=== PATIENT | female | born 1945 | race Caucasian/White ===

== ENCOUNTER 2017-03-25 13:27 | Outpatient (CLI) | payer OTHER ==
--- NOTE | 2017-03-25 15:39 | DIAGNOSTIC IMAGING REPORT ---
PROCEDURE: MR BRAIN WITHOUT CONTRAST INDICATION: HEADACHE X4 MONTHS, STUTTERING, FOGGY TECHNIQUE: Multiplanar multisequence MRI imaging of the brain without contrast. COMPARISON: None. FINDINGS: The midline structures are normally formed. There is mild cerebral cortical atrophy diffusely. This results in slight prominence of the ventricular system. Basal cisterns are patent. Flow voids in the major intracranial vessels are normal. The visible portions of the cranial nerves and their origins appear normal. Signal throughout the moore and white matter demonstrates multiple small rounded areas of increased T2/FLAIR signal in the frontal parietal subcortical white matter, chi radiata white matter, periventricular white matter, and occasionally in the temporal lobes. There is a fairly large patch in the inferior left frontotemporal white matter measuring about 15 mm. None of these areas demonstrate restricted diffusion to suggest acute ischemia. No blooming artifact to suggest hemosiderin deposition. 5 mm rounded focus of cortex signal in the prepontine cistern to the right of midline (series 7 image nine), not well seen on all sequences, and of uncertain origin. No blooming artifact or restricted diffusion. Normal signal in the visible bones. The sinuses are normally aerated. Visible extracranial soft tissues including the orbits are normal. IMPRESSION: 1. No evidence of acute process. 2. Changes of chronic microvascular ischemia, particularly left inferior frontotemporal white matter. 3. Age related involutional changes. 4. 5 mm rounded focus in the right prepontine cistern is most likely an imaging artifact, however a small lesion such as an aneurysm is not excluded. Further evaluation with MRA or CT/CTA of the head is recommended.
== END 2017-03-25 23:00 ==
LOC: MRI SRH 13:27
DX: I67.82 Cerebral ischemia (principal); R93.0 Abnormal findings on diagnostic imaging of skull and head, not elsewhere classified

== ENCOUNTER 2017-03-28 12:23 | Outpatient (CLI) | payer OTHER ==
--- NOTE | 2017-03-28 14:37 | DIAGNOSTIC IMAGING REPORT ---
PROCEDURE: MRA HEAD WITHOUT CONTRAST INDICATION: 5mm ROUNDED FOCUS IN RT PREPONTINE CISTERN TECHNIQUE: Multiplanar multisequence MRI imaging of the brain without contrast. COMPARISON: Brain MRI dated 03/25/2017 FINDINGS: The vertebral basilar and posterior cerebral arteries are normal. There is no evidence of aneurysm, vascular malformation, tumor stain and the vascularity. There is no evidence of vasospasm vasculitis or atherosclerotic disease. The carotids anterior cerebrals middle cerebrals anterior communicator and posterior communicating arteries are normal. There is no evidence of aneurysm, vascular malformation, tumor stain and the vascularity. There is no evidence of vasospasm vasculitis or atherosclerotic disease. IMPRESSION: 1. Normal MRA of the brain.
== END 2017-03-28 23:00 ==
LOC: MRI SRH 12:23
DX: R90.89 Other abnormal findings on diagnostic imaging of central nervous system (principal)